=== PATIENT | female | born 1965 | race Caucasian/White ===

== ENCOUNTER → 2017-03-09 | Outpatient (CLI) | payer OTHER ==
--- NOTE | 2017-03-09 12:27 | MR ---
EXAMINATION TYPE: MR knee RT wo con DATE OF EXAM: 03/09/2017 12:10 PM COMPARISON: NONE HISTORY: Right knee pain TECHNIQUE: Multiplanar, multisequence imaging of the right knee is performed. FINDINGS: MEDIAL MENISCUS: There is an obliquely tear posterior horn medial viscus. Anterior horn is intact. LATERAL MENISCUS: Anterior and posterior horns are intact without tear. CRUCIATE LIGAMENTS: The anterior and posterior cruciate ligaments are intact and unremarkable. COLLATERAL LIGAMENTS: The medial collateral ligament and lateral collateral ligament complex are intact and unremarkable. EXTENSOR MECHANISM: Visualized quadriceps and patellar tendons are intact. EFFUSION: Small joint effusion identified. POPLITEAL CYST: 3 cm Kitchen's cyst noted. TRICOMPARTMENT SPACES: The tricompartment joint spaces appear within normal limits. CARTILAGE: The articular cartilage is maintained without abnormal signal or full-thickness defect. BONE MARROW SIGNAL: No focal abnormal marrow signal is appreciated: OTHER: 6.6 mm G no intercondylar tibial region. IMPRESSION: 1. Oblique tear posterior horn medial meniscus. 2. Kitchen's cyst. 3. Small joint effusion.
== END | disposition home or self-care (01) ==
LOC: RADMRIMAIN 11:19
PROVIDERS: ATTEND Orthopaedic Surgery
DX: S83.241A Other tear of medial meniscus, current injury, right knee, initial encounter (principal); M71.21 Synovial cyst of popliteal space [Baker], right knee

== ENCOUNTER → 2017-03-25 | Outpatient (CLI) | payer OTHER ==
--- NOTE | 2017-03-25 17:17 | XR ---
EXAMINATION TYPE: XR chest 2V DATE OF EXAM: 03/25/2017 COMPARISON: NONE HISTORY: Preop knee surgery TECHNIQUE: Frontal and lateral views of the chest are obtained. FINDINGS: Heart and mediastinum are normal. Lungs are clear. Diaphragm is normal. Bony thorax appear s normal. IMPRESSION: Normal chest
[2017-03-25 17:26] LABS: Basophils # (A) 0.1 k/uL (0-0.2); Basophils % (A) 1 %; CH 27.2; CHCM 31.1; Eosinophils # (A) 0.4 k/uL (0-0.7); Eosinophils % (A) 4 %; HCT 44.1 % (34.0-46.0); HDW 2.04; HGB 14.1 gm/dL (11.4-16.0); Luc # (Auto) 0.13; Luc % (Auto) 1; Lymphocytes # (A) 1.7 k/uL (1.0-4.8); Lymphocytes % (A) 19 %; MCH 28.1 pg (25.0-35.0); Monocytes # (A) 0.4 k/uL (0-1.0); Monocytes % (A) 4 %; Neutrophils # (A) 6.5 k/uL (1.3-7.7); Neutrophils % (A) 71 %; RBC 5.01 m/uL (3.80-5.40); RDW 13.2 % (11.5-15.5); WBC 9.1 k/uL (3.8-10.6); WBC (Perox) 8.72
== END | disposition home or self-care (01) ==
LOC: LABPAT 16:03
PROVIDERS: ATTEND Orthopaedic Surgery
DX: Z01.810 Encounter for preprocedural cardiovascular examination (principal); M23.91 Unspecified internal derangement of right knee; Z01.818 Encounter for other preprocedural examination
CPT/HCPCS: 71020; 85025; 93005

== ENCOUNTER 2017-03-31 13:36 | Day surgery (SDC) | payer OTHER ==
[2017-03-24 12:13] VITALS: BMI 24.3
--- NOTE | 2017-03-30 09:28 | HP ---
HISTORY AND PHYSICAL CHIEF COMPLAINT: Right knee pain. 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 She can't recall a specific injury. She notes she is having medial pain, swelling, and clicking. It wakes her up at night. She has tried medications in addition to an injection with only partial temporary relief. She notes daily pain and she notes that she intermittently limps. PAST MEDICAL HISTORY: Negative. PAST SURGICAL HISTORY: Significant for tonsillectomy and section. CURRENT MEDICATIONS: Diclofenac and propranolol. ALLERGIES: She denies drug allergies. FAMILY HISTORY: Significant for cancer. SOCIAL HISTORY: Negative for current tobacco or alcohol use. REVIEW OF SYSTEMS: Sixteen point review of systems otherwise reviewed and is noncontributory. PHYSICAL EXAMINATION: On examination, the patient is approximately 5 foot 7, 160 pounds, of mesomorphic habitus. HEENT exam is nonfocal. Neck is supple. She has pain with passive motion of right hip. Straight leg raise is negative. Active motion right knee -8 to 120 degrees of flexion. She is tender about the medial joint line. She has a moderate effusion. Collaterals are stable, Manju's negative, Adán's elicits medial pain. Her distal neurovascular appears intact in the right lower extremity. RADIOGRAPHIC FINDINGS: MRI report for the right knee shows evidence of a posterior horn medial meniscal tear. IMPRESSION: Right knee internal derangement with symptomatic posterior medial meniscal tear. RECOMMENDATIONS: I talked to the patient at length regarding her treatment options. She is having significant pain and limitations despite conservative measures. After thorough discussion, she opts to proceed with surgery. We will plan to proceed with arthroscopic evaluation with probable partial medial meniscectomy. Risks and benefits were discussed at length in layman's terms. We will likely perform that as an outpatient procedure. MMODL / IJN: [id number] /
[~2017-03-31 13:36] MED LIST: DEXAMETHASONE SOD PHOSPHATE 10 MG/ML 1 ML VIAL IV ONE; LACTATED RINGERS 1,000 ML IV SCH; MIDAZOLAM 2 MG/2 ML VIAL IV PRN; ONDANSETRON 4 MG/2 ML VIAL IVP ONE; ceFAZolin IN SWFI 2 GM/20 ML SYRINGE IVP ONE
[2017-03-31] MEDS ORDERED: LIDOCAINE 1% 20 ML VIAL (10MG/ML) FOR IV START INTRADERMA ONE (13:57)
[2017-03-31 14:20] LABS: Potassium 4.1 mmol/L (3.5-5.1)
[2017-03-31] MEDS ORDERED: fentaNYL (PF) 50 MCG/ML 2 ML AMP ONE (15:15)
[2017-03-31] MEDS ORDERED: LIDOCAINE 1% INJ 10MG/ML (20 ML MDV) ONE (15:15)
[2017-03-31] MEDS ORDERED: HYDROmorphone (PF) 1 MG/ML ONE (15:15)
[2017-03-31] MEDS ORDERED: MIDAZOLAM 2 MG/2 ML VIAL ONE (15:15)
[2017-03-31] MEDS ORDERED: KETOROLAC 30 MG/ML 1 ML VIAL ONE (15:15)
[2017-03-31] MEDS ORDERED: PROPOFOL 10 MG/ML 20 ML VIAL IV ONE (15:15)
[2017-03-31] MEDS ORDERED: EPINEPHrine (PF) 1 ML in SODIUM CHLORIDE 0.9% IRRIGATIO 3,000 ML IRRIGATION ONE ×4 (15:15)
--- NOTE | 2017-03-31 16:20 | P.OP ---
Date of Procedure: 03/31/17 Preoperative Diagnosis: Right knee internal derangement Postoperative Diagnosis: Right knee posterior medial meniscal tear/grade 3 chondral injury central posterior medial femoral condyle/peripheral lateral meniscal tear-middle one third Procedure(s) Performed: Right knee arthroscopic partial medial meniscectomy/medial femoral chondrectomy/ partial lateral meniscectomy Anesthesia: JEREMY Surgeon: Nguyễn Vital Estimated Blood Loss (ml): 10 Pathology: none sent Condition: stable Disposition: PACU Indications for Procedure: The patient is a 51-year-old female who presents with progressive right knee pain and mechanical symptoms after doing a lot of squatting approximately 3 months ago. She tried conservative measures without significant relief. A discussion of the risks and benefits of continued conservative measures versus operative intervention was made with patient. She opted to proceed with surgery. Operative risks to include infection, neurovascular injury, development of blood clots, possible incomplete resolution of symptoms, possible worsening symptoms and need for subsequent procedures was discussed. Informed consent was obtained. Operative Findings: The patient was brought to the operating room, and after induction of general anesthesia I examined the right knee. Collaterals were stable, Manju was negative, and posterior drawer was negative. The right lower extremity was prepped and draped in a normal fashion. A superior lateral portals made through a 3 mm skin incision superior and lateral to the patella. This was used for outflow. A lateral portals made through a 5 mm vertical skin incision lateral to the patella tendon above the joint line. Diagnostic arthroscopy was performed. A medial portal was made through a similar incision medial to the patella tendon above the joint. On inspection of the medial compartment, a complex tear involving the posterior to middle one third was noted in the white- red junction. This was not amenable to repair. This was debrided back to a stable base with straight baskets and a motorized shaver. A corresponding grade 2/3 chondral injury was noted involving the central posterior portion of the medial femoral condyle. There was a loose chondral flap debrided back to stable base with a motorized shaver. This lesion measured approximately 20 x 25 mm. On inspection of the notch, the anterior cruciate ligament appeared to be intact. On inspection of the lateral compartment, there was some degenerative changes involving the lateral aspect of the distal femur. A peripheral tear involving the middle one third of the lateral meniscus was noted. A portion this was debrided back to a stable base the motorized shaver. The remaining lateral meniscus was stable and intact. On inspection patellofemoral articulation, there is mild degenerative changes however no loose chondral fragments. The gutters were clear of debris. The knee was then thoroughly irrigated. The portals were closed with Steri-Strips. A sterile dressing was applied in addition to a compression stocking. The patient was awoken from general anesthesia and transferred to recovery room in good condition. Blood loss was estimated at 10 mL. No complications were incurred.
[2017-03-31 16:23] VITALS: TEMP 97.3
[2017-03-31] MEDS: HYDROmorphone 0.5 MG/0.5 ML SYRINGE IVP PRN ×3 (16:24→16:52)
[2017-03-31] MEDS ORDERED: diphenhydrAMINE 50 MG/ML 1 ML VIAL IVP ONE (16:33)
[2017-03-31] MEDS ORDERED: HYDROmorphone 2 MG/ML 1 ML SYRINGE IVP ONE (16:36)
[2017-03-31] MEDS ORDERED: LACTATED RINGERS 1,000 ML IV ONE (16:36)
[2017-03-31 17:26] VITALS: RESP 16
[2017-03-31] MEDS ORDERED: HYDROcodone/APAP 5-325MG 1 EACH TAB PO ONE (17:34)
[2017-03-31 17:43] VITALS: BP 135/70; PULSE 59
== END 2017-03-31 18:33 | disposition home or self-care (01) ==
LOC: OR 13:36
PROVIDERS: ATTEND Orthopaedic Surgery
DX: S83.241A Other tear of medial meniscus, current injury, right knee, initial encounter (principal); S83.281A Other tear of lateral meniscus, current injury, right knee, initial encounter; S89.91XA Unspecified injury of right lower leg, initial encounter; X58.XXXA Exposure to other specified factors, initial encounter; I47.1 Supraventricular tachycardia; Z79.1 Long term (current) use of non-steroidal anti-inflammatories (NSAID); Z79.899 Other long term (current) drug therapy; Z87.891 Personal history of nicotine dependence
CPT/HCPCS: 80051; 29880; J1170 ×2; J1200; J1100; J0690; J2405; J0171; 81025